=== PATIENT | female | born 1985 | race Caucasian/White ===

== ENCOUNTER 2017-04-30 13:11 | Emergency (ER) | payer BC | END 2017-04-30 16:00 | disposition home or self-care (01) | LOC: ER1 13:11 | DX: T63.441A Toxic effect of venom of bees, accidental (unintentional), initial encounter (principal); L50.0 Allergic urticaria; F17.200 Nicotine dependence, unspecified, uncomplicated | CPT/HCPCS: 96374; 96375; 99282; J0171; J1200; J1885; J2930 ==

== ENCOUNTER → 2017-05-04 | Outpatient (CLI) | payer BC | LOC: EXRD 15:03 | DX: M25.551 Pain in right hip (principal) | CPT/HCPCS: 73502 ==

== ENCOUNTER → 2017-05-17 | Outpatient (CLI) | payer BC | LOC: OPSV 09:41 | DX: Z01.82 Encounter for allergy testing (principal); J45.20 Mild intermittent asthma, uncomplicated; J30.89 Other allergic rhinitis; Z91.018 Allergy to other foods; Z91.030 Bee allergy status | CPT/HCPCS: 36415; 82306; 82785; 86003; 99001 ==

== ENCOUNTER 2021-09-12 23:08 | Emergency (ER) | payer BC ==
[2021-09-12 23:34] LABS: HEMOGLOBIN 13.5 gm/dl (12.3-15.3); RED BLOOD COUNT 4.67 M/UL (4.00-5.10)
[2021-09-13 00:09] LABS: BUN/CREATININE RATIO 13 (0-10)
== END 2021-09-13 01:10 | disposition home or self-care (01) ==
LOC: ER1 23:08
PROVIDERS: Family Medicine
DX: R42 Dizziness and giddiness (principal); R00.0 Tachycardia, unspecified; J45.909 Unspecified asthma, uncomplicated; F17.200 Nicotine dependence, unspecified, uncomplicated; Z20.822 Contact with and (suspected) exposure to COVID-19
CPT/HCPCS: 71045; 80053; 82550; 82553; 83874; 84439; 84443; 84484; 85025; 93005; 99284; U0002